=== PATIENT | male | born 1960 | race Caucasian/White ===

== ENCOUNTER 2019-03-15 22:14 | Emergency (ER) | payer MEDICARE, OTHER ==
[~2019-03-15] VITALS: Ht 180.3 cm; Wt 79.3 kg
--- NOTE | 2019-03-15 22:36 | NUR ---
PT PRESENTS TO ED WITH "WALKING PNEUMONIA" PT REPORTS SOME IMPROVEMENT, BUT THAT HE "CAN STILL FEEL IT" AND "TASTE IT" IN HIS LEFT LUNG. PT PLEASANT WITH STAFF. DENIES CP. REPORT CARDIAC HX WITH MEDS BUT DOES NOT KNOW HX OR MEDS HE SHOULD BE ON.
[2019-03-15 23:04] LABS: RAPID INFLUENZA A Negative (Negative); RAPID INFLUENZA B Negative (Negative)
[2019-03-15 23:42] VITALS: BP 102/65
== END 2019-03-15 23:44 | disposition home or self-care (01) ==
LOC: ED 23:40
DX: B34.9 Viral infection, unspecified (principal); F17.210 Nicotine dependence, cigarettes, uncomplicated
CPT/HCPCS: 71046; 87400; 93005; 99284

== ENCOUNTER 2019-10-20 07:54 | Emergency (ER) | payer MEDICARE ==
[~2019-10-20] VITALS: Ht 180.3 cm; Wt 71.3 kg
[2019-10-20 07:57] VITALS: BP 97/66
--- NOTE | 2019-10-20 08:02 | NUR ---
EKG IN TRIAGE
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
[2019-10-20] MEDS ORDERED: DIVA500T4 PO (08:20)
[2019-10-20] MEDS ORDERED: KETOROLAC 30 MG/1 ML ONE (08:21)
--- NOTE | 2019-10-20 08:46 | NUR ---
PT BACK FROM IMAGING. MEDICATION ADMINISTERED PER ORDER. BEDSIDE REPORT TO ELIZABETH CLARKE.
[2019-10-20] MEDS ORDERED: KETOROLAC 30 MG/1 ML IM ONE (09:00)
== END 2019-10-20 10:12 | disposition home or self-care (01) ==
LOC: ED 08:42
DX: S22.42XA Multiple fractures of ribs, left side, initial encounter for closed fracture (principal); R00.0 Tachycardia, unspecified; X58.XXXA Exposure to other specified factors, initial encounter; Y93.89 Activity, other specified; Y92.89 Other specified places as the place of occurrence of the external cause; Y99.8 Other external cause status
CPT/HCPCS: 71101; 93005; 96372; 99283; J1885

== ENCOUNTER 2020-04-08 13:09 | Emergency (ER) | payer MEDICARE ==
[~2020-04-08] VITALS: Ht 185.4 cm; Wt 80.0 kg
[~2020-04-08 13:09] MED LIST: DIVA500T4 PO
[2020-04-08 13:16] VITALS: BP 114/78
--- NOTE | 2020-04-08 13:42 | NUR ---
CUSTOMER CONTACT SPECIALIST: PT STATE HE WILL COME BACK TOMMOROW
== END 2020-04-08 13:43 | disposition left against medical advice (07) ==
LOC: ED 13:37
DX: B85.1 Pediculosis due to Pediculus humanus corporis (principal); Z53.21 Procedure and treatment not carried out due to patient leaving prior to being seen by health care provider
CPT/HCPCS: 99281